=== PATIENT | male | born 1955 | race Caucasian/White ===

== ENCOUNTER 2018-02-15 14:38 | Emergency (ER) | payer OTHER ==
--- NOTE | 2018-02-15 15:06 | Emergency Department Record ---
History of Present Illness - General Chief complaint: Extremity Problem Stated complaint: THINKS HE HAS A BLOOD CLOT Time Seen by Provider: 02/15/18 14:57 Source: Patient Mode of Arrival: Ambulatory Limitations: No limitations - History of Present Illness Initial comments: The patient is here to have his L leg checked. He is concerned about a blood clot. He was playing football with his grandsons 6 days ago and had the L lower leg banged on by another player. He developed a large hematoma to the anterior medial L lower leg. It has gone down a lot since but the patient is concerned about a clot. He denies any pain or swelling to the L calf, posterior knee or thigh. The patient is also very active with risk factors for DVT. MD Complaint: Extremity pain Onset/Timin -: Days(s) Location: Left, Lower Leg History of Same: No Radiation: None Consistency: Constant Improves with: Nothing Worsens with: Walking Associated Symptoms: Denies other symptoms - Related Data Home Medications Medication Instructions Recorded Confirmed Last Taken No Home Med [NO HOME MEDS] 02/15/18 02/15/18 Unknown Allergies Allergy/AdvReac Type Severity Reaction Status Date / Time No Known Drug Allergies Allergy Verified 02/16/14 20:05 Travel Screening - Travel/Exposure Within Last 30 Days Have you traveled within the last 30 days?: No Review of Systems Constitutional: Denies: Chills, Fever Eyes: Denies: Eye discharge ENT: Denies: Congestion Respiratory: Denies: Cough, Dyspnea Past Medical History - SOCIAL HISTORY Smoking Status: Never smoker Alcohol Use: None Drug Use: None - RESPIRATORY Hx Respiratory Disorders: No - CARDIOVASCULAR Hx Cardio Disorders: Yes Hx Hypertension: Yes - NEURO Hx Neuro Disorders: No - GI Hx GI Disorders: No - Hx Genitourinary Disorders: No - ENDOCRINE Hx Endocrine Disorders: Yes Hx Diabetes: Yes - MUSCULOSKELETAL Hx Musculoskeletal Disorders: No - PSYCH Hx Psych Problems: No - HEMATOLOGY/ONCOLOGY Hx Hematology/Oncology Disorders: No Family Medical History Any Significant Family History?: No Physical Exam - General General Appearance: Alert, Oriented x3, Cooperative, No acute distress - Head Head exam: Atraumatic, Normocephalic, Normal inspection - Eye Eye exam: Normal appearance, PERRL, EOMI - Neck Neck exam: Normal inspection, Full ROM. negative: Tenderness - Respiratory Respiratory exam: Normal lung sounds bilaterally. negative: Respiratory distress - Cardiovascular Cardiovascular Exam: Regular rate, Normal rhythm, Normal heart sounds - Extremities Extremities exam: Full ROM, Normal capillary refill, Tenderness (only to the anterior L leg at the bruise site.), Other (There is no calf, posterior knee or thigh tendernss.). negative: Normal inspection (There is a large bruise to the L lower leg anterior medial surface. ), Calf tenderness, Joint swelling, Pedal edema Image of Full Body: 1 - Area of hematoma and mild tenderness. There is no overlying erythema or warmth. Course Vital Signs 02/15/18 14:52 Temperature 98.2 F Pulse Rate 84 Respiratory 20 Rate Blood Pressure 132/106 Pulse Ox 97 - Reevaluation(s) Reevaluation #1: I explained to the patient that he clearly has a superficial clot to the anterior lower leg from the trauma but has no signs of any DVT. I did also explain that I could say with about a 95% certainty that he has no DVT but there is always a small chance of one. Because of the small chance I do recommend the L leg Doppler to R/O DVT. The patient now is refusing the Doppler. He understands the risks of refusing and accepts the risks. 02/15/18 15:11 Disposition Disposition: Discharge Clinical Impression: Leg hematoma Qualifiers: Encounter type: initial encounter Laterality: left Qualified Code(s): S80.12XA - Contusion of left lower leg, initial encounter Disposition: Home, Self-Care Condition: (2) Stable Instructions: Hematoma (ED) Additional Instructions: Please use ice to the area when possible and wear an radha wrap for compression. Please return to the ER for any worsening symptoms. Forms: Patient Portal Access Time of Disposition: 15:14 Quality - Quality Measures Quality Measures: N/A - Blood Pressure Screening View Details: Yes Does Patient Have Any of the Following: Active Dx of HTN Blood Pressure Classification: Hypertensive Reading Systolic Measurement: 132 Diastolic Measurement: 106 Screening for High Blood Pressure: Patient Exclusion, Hx of HTN [[id number]]
== END 2018-02-15 15:25 | disposition home or self-care (01) ==
LOC: ER 14:38
DX: S80.12XA Contusion of left lower leg, initial encounter (principal); I10 Essential (primary) hypertension; E11.9 Type 2 diabetes mellitus without complications; W51.XXXA Accidental striking against or bumped into by another person, initial encounter; Y93.61 Activity, american tackle football
CPT/HCPCS: 99282